=== PATIENT | female | born 1950 | race Caucasian/White ===

== ENCOUNTER → 2020-07-22 | Outpatient (CLI) | payer MEDICARE, BC ==
[~2020-07-22] MED LIST: CELEBREX200 MG PO; HUMIRA40 MG/0.4 SC; IBUPROFEN600 MG PO; NORCO 10-325 T1 EACH PO; PERCOCET 5-3251 EACH PO; PRILOSEC OTC20 MG PO; ZOLOFT25 MG PO
== END ==
LOC: MAMO 07-02 14:30
DX: Z12.31 Encounter for screening mammogram for malignant neoplasm of breast (principal); Z53.9 Procedure and treatment not carried out, unspecified reason

== ENCOUNTER → 2020-09-21 | Outpatient (CLI) | payer MEDICARE, BC | LOC: MAMO 13:25 | DX: Z12.31 Encounter for screening mammogram for malignant neoplasm of breast (principal) | CPT/HCPCS: 77063; 77067 ==

== ENCOUNTER → 2021-04-13 | Outpatient (CLI) | payer MEDICARE, BC ==
[2021-04-13 12:20] LABS: HEMOGLOBIN 13.6 gm/dl (12.3-15.3); RED BLOOD COUNT 4.26 M/UL (4.00-5.10); WHITE BLOOD COUNT 4.8 K/UL (4.5-11.0)
[2021-04-13 13:38] LABS: BUN/CREATININE RATIO 15 (0-10)
[2021-04-14 05:09] LABS: HBSAG SCREEN Negative (Negative); HEP A AB, IGM Negative (Negative); HEP B CORE AB, IGM Negative (Negative); HEP C VIRUS AB <0.1 (0.0-0.9)
[2021-04-16 11:13] LABS: QUANTIFERON MITOGEN VALUE >10.00 IU/mL (.); QUANTIFERON NIL VALUE 0.01 IU/mL (.); QUANTIFERON TB1 AG VALUE 0.04 IU/mL (.); QUANTIFERON TB2 AG VALUE 0.01 IU/mL (.); QUANTIFERON-TB GOLD PLUS Negative (Negative)
== END ==
LOC: LAB 11:16
PROVIDERS: Nurse Practitioner Women's Health
DX: D89.9 Disorder involving the immune mechanism, unspecified (principal); M06.09 Rheumatoid arthritis without rheumatoid factor, multiple sites; R53.83 Other fatigue; Z79.899 Other long term (current) drug therapy
CPT/HCPCS: 36415; 80053; 80074; 85025; 85652; 86140

== ENCOUNTER → 2021-05-17 | Outpatient (CLI) | payer MEDICARE, BC | LOC: KOH-I 12:19 | DX: M25.561 Pain in right knee (principal); M17.11 Unilateral primary osteoarthritis, right knee; M25.461 Effusion, right knee | CPT/HCPCS: 73562 ==

== ENCOUNTER → 2021-06-02 | Outpatient (CLI) | payer MEDICARE, BC | LOC: KOH-I 13:57 | DX: M25.561 Pain in right knee (principal); M17.11 Unilateral primary osteoarthritis, right knee; M25.861 Other specified joint disorders, right knee | CPT/HCPCS: 73721 ==

== ENCOUNTER → 2021-09-23 | Outpatient (CLI) | payer MEDICARE, BC | LOC: MAMO 11:49 | DX: Z12.31 Encounter for screening mammogram for malignant neoplasm of breast (principal) | CPT/HCPCS: 77063; 77067 ==